=== PATIENT | female | born 2000 | race Caucasian/White ===

== ENCOUNTER 2020-10-05 12:20 | Emergency (ER) | payer OTHER ==
[~2020-10-05] VITALS: Ht 167.6 cm; Wt 72.6 kg
[~2020-10-05 12:20] MED LIST: CEPH250SUA PO
[2020-10-05] MEDS ORDERED: KETO200 PO (14:38)
[2020-10-06 08:10] LABS: HIV SCREEN 4TH GENERATION WRFX Non Reactive (Non Reactive)
[2020-10-07 05:11] LABS: CHLAMYDIA TRACHOMATIS, NAA Negative (Negative)
== END 2020-10-05 15:30 | disposition home or self-care (01) ==
LOC: ER 12:20
PROVIDERS: Physician Assistant
DX: B37.2 Candidiasis of skin and nail (principal)
CPT/HCPCS: 36415; 81025; 86592; 87389; 87491; 87591; 99282